=== PATIENT | female | born 1950 | race Caucasian/White ===

== ENCOUNTER 2017-09-02 03:51 | Emergency (ER) | payer MEDICARE, OTHER ==
[~2017-09-02] VITALS: Ht 165.1 cm; Wt 50.8 kg
--- NOTE | 2017-09-02 03:51 | NUR ---
"CHRONIC LUMP IN LT BREAST; BEEN DRINKING FOR 2 WEEKS AND OFF OF XANAX" DENIES SI. PATIENT IS NOTED ANXIOUS. VSS NAD A/OX4 ABLE TO MAKE NEEDS KNOWN. WILL CONTINUE TO MONITOR FOR ANY CHANGES DURING THE SHIFT.
--- NOTE | 2017-09-02 04:15 | NUR ---
ER MD SAMANO AT BEDSIDE
--- NOTE | 2017-09-02 05:58 | NUR ---
DISPENSER OPERATOR AT BEDSIDE
[2017-09-02] MEDS ORDERED: IBUPROFEN 400 MG TABLET ONE (06:51)
[2017-09-02] MEDS ORDERED: ONDANSETRON 4 MG TAB.RAPDIS ONE ×2 (06:55→07:46)
[2017-09-02] MEDS ORDERED: IBUPROFEN 400 MG TABLET PO ONE (07:00)
[2017-09-02] MEDS ORDERED: ONDANSETRON 4 MG TAB.RAPDIS SL ONE ×2 (07:30→08:00)
[2017-09-02] MEDS ORDERED: HYDROCODONE/APAP 5/325MG 1 EACH TABLET ONE (07:46)
[2017-09-02] MEDS ORDERED: IV NS 0.9% 1,000 ML BAG IV ONE (08:00)
[2017-09-02] MEDS ORDERED: HYDROCODONE/APAP 5/325MG 1 EACH TABLET PO ONE (08:00)
[2017-09-02] MEDS ORDERED: PANTOPRAZOLE 40 MG VIAL IV ONE (08:00)
--- NOTE | 2017-09-02 08:00 | NUR ---
LEFT WRIST #20 IV ACCESS. BLOOD SAMPLE COLLECTED SENT TO LAB
[2017-09-02] MEDS ORDERED: PANTOPRAZOLE 40 MG VIAL ONE (08:12)
[2017-09-02 08:14] LABS: BASOPHILS % (AUTO) 0.1 % (0.0-2.0); HEMATOCRIT 36 % (33-45); HEMOGLOBIN 12.6 g/dL (11.5-14.8); LYMPHOCYTES # (AUTO) 1.4 /CMM (0.8-4.8); LYMPHOCYTES % (AUTO) 14.1 % (20.0-44.0); MEAN CORPUSCULAR HGB CONC 35 g/dl (31.0-36.0); MEAN CORPUSCULAR VOLUME 96 fL (82-100); MONOCYTES # (AUTO) 0.7 /CMM (0.1-1.30); NEUTROPHILS # (AUTO) 7.9 /CMM (1.8-8.9); NEUTROPHILS % (AUTO) 78.8 % (43.0-81.0); PLATELET COUNT (AUTO) 150 /CMM (150-450); RDW COEFFICIENT OF VARIATION 14.1 (11.5-15.0); RED BLOOD CELL COUNT(AUTO) 3.72 MIL/uL (4.0-5.2)
[2017-09-02 08:22] LABS: CALCIUM, SERUM 8.8 mg/dL (8.5-10.1); CREATININE 0.4 mg/dL (0.6-1.3)
[2017-09-02 08:29] LABS: ALBUMIN 3.3 g/dL (3.4-5.0); BILIRUBIN,DIRECT 0.3 mg/dL (0.0-0.2); BILIRUBIN,TOTAL 0.9 mg/dL (0.2-1.0); TOTAL PROTEIN, SERUM 6.6 g/dL (6.4-8.2)
[2017-09-02 08:32] LABS: INR 0.94 (0.87-1.13)
[2017-09-02] MEDS ORDERED: FENTANYL PF 100MCG/2ML AMPUL ONE (09:12)
[2017-09-02] MEDS ORDERED: FENTANYL PF 100MCG/2ML AMPUL IV ONE (09:30)
[2017-09-02] MEDS ORDERED: IV NS 0.9% 500 ML IV ONE (09:30)
[2017-09-02 10:23] LABS: CREATININE 0.5 mg/dL (0.6-1.3); POTASSIUM 3.8 mmol/L (3.5-5.1)
--- NOTE | 2017-09-02 10:42 | NUR ---
IV removed. Catheter intact and site benign. Pressure and 4x4 applied to site. No bleeding noted.
--- NOTE | 2017-09-02 10:42 | NUR ---
Patient discharged to home in stable condition. Written and verbal after care instructions given. Patient verbalizes understanding of instruction.
[2017-09-02 10:48] VITALS: BP 150/82
== END 2017-09-02 11:02 | disposition home or self-care (01) ==
LOC: ER 03:54
DX: C50.012 Malignant neoplasm of nipple and areola, left female breast (principal); F41.9 Anxiety disorder, unspecified; I25.10 Atherosclerotic heart disease of native coronary artery without angina pectoris
CPT/HCPCS: 36415; 71045; 76641; 80048 ×2; 80076; 85025; 85730; 86850; 93005; 96361; 96374; 96375; 99285; A4606; C9113; G0480; J3010; J7030; J7040; Q0162 ×2; Z7610

== ENCOUNTER 2019-12-27 14:42 | Inpatient (IN) | payer MEDICARE, OTHER ==
[~2019-12-27] VITALS: Ht 152.4 cm; Wt 39.5 kg
--- NOTE | 2019-12-27 14:42 | NUR ---
PT [id number] FRM HOME, PER EMS FAMILY CALLED FOR WELFARE CHECK. FOUND IN FLOOR. PT IS AAOX3, NOT IN RESPIRATORY DISTRESS, HOOKED TO PIZZA COOK, KEPT RESTED AND COMFORTABLE. WILL CONTINUE TO MONITOR.
--- NOTE | 2019-12-27 15:05 | NUR ---
AT BEDSIDE FOR EVAL.
--- NOTE | 2019-12-27 15:23 | NUR ---
IV LINE ESTABLISHED.
[2019-12-27] MEDS ORDERED: IV NS 0.9% 1,000 ML BAG IV ONE ×2 (15:30→17:00)
--- NOTE | 2019-12-27 15:44 | NUR ---
URINE SPECIMEN COLLECTED AND SENT TO LAB.
--- NOTE | 2019-12-27 15:56 | NUR ---
MOVE SHEET SUBMITTED AND CALLED FOR MS BED.
[2019-12-27 15:57] LABS: BASOPHILS % (AUTO) 0.2 % (0.0-2.0); HEMATOCRIT 50 % (33-45); HEMOGLOBIN 16.6 g/dL (11.5-14.8); LYMPHOCYTES # (AUTO) 1.5 /CMM (0.8-4.8); LYMPHOCYTES % (AUTO) 10.7 % (20.0-44.0); MEAN CORPUSCULAR HGB CONC 33 g/dl (31.0-36.0); MEAN CORPUSCULAR VOLUME 105 fL (82-100); MONOCYTES # (AUTO) 1.4 /CMM (0.1-1.30); MONOCYTES % (AUTO) 9.9 % (2.0-12.0); NEUTROPHILS # (AUTO) 11.2 /CMM (1.8-8.9); NEUTROPHILS % (AUTO) 79.2 % (43.0-81.0); PLATELET COUNT (AUTO) 224 /CMM (150-450); WHITE BLOOD COUNT (AUTO) 14.1 K/uL (4.3-11.0)
[2019-12-27 16:02] LABS: APPEARANCE,URINE Cloudy (CLEAR); BILIRUBIN,URINE SMALL (NEGATIVE); BLOOD, URINE Trace-lysed Ery/uL (NEGATIVE); COLOR,URINE Yellow (YELLOW); KETONES,URINE 15 (NEGATIVE); LEUKOCYTE ESTERASE ,URINE Negative (NEGATIVE); NITRITE, URINE Negative (NEGATIVE); PROTEIN,URINE Negative (NEGATIVE); UGLUCOSE Negative (NEGATIVE); UROBILINOGEN,URINE 0.2 EU/dL (0.2)
--- NOTE | 2019-12-27 16:04 | NUR ---
PT IS WHEELED TO CT SCAN VIA [facility].
[2019-12-27 16:18] LABS: CALCIUM, SERUM 9.8 mg/dL (8.5-10.1); CARBON DIOXIDE 24 mmol/L (21-32); CHLORIDE 101 mmol/L (98-107); GLUCOSE 127 mg/dL (74-106); POTASSIUM 4.1 mmol/L (3.5-5.1); SODIUM SERUM 138 mmol/L (136-145); UREA NITROGEN, BLOOD 41 mg/dL (7-18)
[2019-12-27 16:25] LABS: ALANINE AMINOTRANSFERASE 55 U/L (12-78); ALBUMIN 3.4 g/dL (3.4-5.0); ALCOHOL, BLOOD < 3 mg/dL (0-0); ALKALINE PHOSPHATASE 58 U/L (46-116); ASPARTATE AMINOTRANSFERASE 45 U/L (15-37); BILIRUBIN,DIRECT 0.1 mg/dL (0.0-0.2); BILIRUBIN,TOTAL 0.5 mg/dL (0.2-1.0); SALICYLATE 4.1 mg/dL (2.8-20.0); TOTAL PROTEIN, SERUM 7.3 g/dL (6.4-8.2)
[2019-12-27 16:26] LABS: ACETAMINOPHEN < 2 ug/ml (10-30)
[2019-12-27 16:33] LABS: BACTERIA,URINE Rare /HPF (None Seen); SQUAMOUS EPITHELIAL CELL,UR Few /HPF (None Seen); WBC,URINE NONE SEEN /HPF (0-3)
[2019-12-27 16:33] LABS: SERUM AMMONIA 7 umol/L (11-32)
[2019-12-27 16:41] LABS: THYROID STIMULATING HORMONE 1.236 uIU/mL (0.358-3.74)
[2019-12-27] MEDS ORDERED: HYDR-4384 PO (17:14)
[2019-12-27] MEDS ORDERED: ALPR1TAB2 PO (17:14)
--- NOTE | 2019-12-27 17:20 | NUR ---
LAB CALLED COVID-19 NEG. (-)
--- NOTE | 2019-12-27 17:30 | NUR ---
[facility] FOLLOWED UP TO ENSURE THE JOURNEYMAN ELECTRICIAN PV INSTALLER DR HAD CALLED. [facility] REDISPATCHED THE PAGE
--- NOTE | 2019-12-27 18:00 | NUR ---
CALLED JONAH AGAIN TO PAGE DR. ESCOBAR
--- NOTE | 2019-12-27 18:30 | NUR ---
TEXTED DR. ESCOBAR AND HE SAID THAT [facility] WILL CALL US.
--- NOTE | 2019-12-27 18:45 | NUR ---
CALLED [facility] TO HAVE MACI CALL US.
--- NOTE | 2019-12-27 20:13 | NUR ---
REPORT GIVEN TO RULA ROCA FOR KEVIN PT WILL BE TRANSPORTED TO 3RD FLOOR
[2019-12-27 21:00] VITALS: BP 154/75
[2019-12-27] MEDS ORDERED: ONDANSETRON HCL/PF 4 MG/2 ML VIAL IVP PRN (21:00)
[2019-12-27] MEDS ORDERED: Z GUARD REMEDY 2 OZ OINT TP PRN (21:00)
[2019-12-27] MEDS ORDERED: ZOLPIDEM TARTRATE 5 MG TABLET PO PRN (21:00)
[2019-12-27] MEDS ORDERED: ACETAMINOPHEN 325 MG TABLET PO PRN (21:00)
[2019-12-27] MEDS ORDERED: HYDROCODONE/APAP 5/325MG TABLET PO PRN (21:00)
--- NOTE | 2019-12-27 21:11 | NUR ---
PT TRANSPORTED TO 3RD FLOOR
--- NOTE | 2019-12-27 21:12 | NUR ---
MS/RN NEW ADMISSION NOTES RECEIVED PATIENT IS A 69 YO FEMALE, WEAK AND FRAIL LOOKING, REQUIRE ASSISTANCE EXTENSIVE PATIENT IS WEEK. ALERT, ORIENTED X2 TO 3, CAN COOPERATE AND FOLLOW SIMPLE COMMANDS, BUT REQUIRE FREQUENT REORIENTATION AND ENCOURAGE FOOD AND FLUIDS, WITH MD ORDER FOR REGULAR DIET. REPORT RECEIVED PATIENT LIVES ALONE AND DAUGHTER ANTONY CALLED SHE DISCUSSED HER MOMS CONCERNS HAS BEEN DRINKING HEAVILY WITH HEINEKEN BEER AND SMOKING ORGANIC CIGARETTES AND HAS NOT BEEN EATING WELL. MD MACI BOWERS IS THE ADMITTING DR, BELONGINGS CHECK, MEDICATION HOME REPORTED AND PATIENT SKIN ASSESSES WITH PRESSURE SACRAL WITH REDNESS AND RIGHT ELBOW REDNESS, LEFT BREAST MASTECTOMY AND MID BACK REDNESS, ROOM ORIENTATION PROVIDED, BED LOCKED, CALL LIGHTS WITHIN REACH. MONITORED FOR SAFETY.ON ROOM AIR, RESPIRATIONS EVEN AND UNLABORED, IV SITE ON RFA PATENT.
--- NOTE | 2019-12-27 21:15 | NUR ---
MS/RN NOTES PATIENT DAUGHTER NEWTON CALLED AND DISCUSSED HER MOMS HEALTHCARE CONCERNSTHAT HER MOM HAS NOT BEEN EATING WELL FOR THE PAST MONTHS AND HAS BEEN DRINKING HEINEKEN BEER AND SMOKES ORGANIC CIGARRETED, THAT HER MOM REFUSES CARE AND MAY NEED SOCIAL WORK CONSULT TO DISCUSS CARE, PER DAUGHTER PATIENT HAS BEEN DEPRESSED EVER SINCE PANDEMIC STARTED AND TO ADD THAT SHE IS ALONE AND LEFT WITHOUT HER PARTNER AND ALSO WITH STAGE 3 BREAST CANCER, PATIENT HAS MEDICATION XANAX THAT SHE TAKES AND HAS RAN OUT THAT SHE MIGHT HAVE SOME EFFECTS, PATIENT LIVES ALONE AND HAVE BROUGHT UP DNR, PALLIATIVE SET UP AND HOSPICE , BEING SEEN BY ONCOLOGIST SID MARTINEZ AT [facility].
[2019-12-27] MEDS: ENOXAPARIN SODIUM 40 MG/0.4 ML DISP.SYRIN SQ SCH (22:12)
[2019-12-28] MEDS: IV NS 0.9% 1,000 ML IV PRN ×3 (00:15→19:53)
[2019-12-28] MEDS: ALPRAZOLAM 1 MG TABLET PO PRN ×2 (00:33→10:23)
--- NOTE | 2019-12-28 00:38 | NUR ---
MS/RN NOTES PATIENT HAVING ANXIETY AND REQUESTING MEDICATION TO CALM HER DOWN XANAX 1 MG PO GIVEN, PATIENT ABLE TO TOLERATE PO MEDS. ALERT X2 ONLY PATIENT THOUGHTS WANDERS,
--- NOTE | 2019-12-28 02:00 | NUR ---
MS/RN NOTES PATIENT OBSERVED ASLEEP, RESTING COMFORTABLE UNABLE TO EAT THE SNACKS PROVIDED.
[2019-12-28 04:33] LABS: BASOPHILS % (AUTO) 0.2 % (0.0-2.0); EOSINOPHILS % (AUTO) 0.1 % (0.0-6.0); HEMATOCRIT 42 % (33-45); HEMOGLOBIN 14.2 g/dL (11.5-14.8); LYMPHOCYTES # (AUTO) 1.6 /CMM (0.8-4.8); LYMPHOCYTES % (AUTO) 23.4 % (20.0-44.0); MEAN CORPUSCULAR HGB CONC 34 g/dl (31.0-36.0); MEAN CORPUSCULAR VOLUME 103 fL (82-100); MONOCYTES # (AUTO) 0.8 /CMM (0.1-1.30); NEUTROPHILS # (AUTO) 4.3 /CMM (1.8-8.9); NEUTROPHILS % (AUTO) 64.3 % (43.0-81.0); PLATELET COUNT (AUTO) 180 /CMM (150-450); RED BLOOD CELL COUNT(AUTO) 4.07 MIL/uL (4.0-5.2); WHITE BLOOD COUNT (AUTO) 6.7 K/uL (4.3-11.0)
[2019-12-28 04:55] LABS: ALBUMIN 2.6 g/dL (3.4-5.0); BILIRUBIN,TOTAL 0.4 mg/dL (0.2-1.0); CALCIUM, SERUM 8.3 mg/dL (8.5-10.1); CREATININE 0.6 mg/dL (0.6-1.3); MAGNESIUM 2.2 mg/dL (1.8-2.4); PHOSPHORUS 2.7 mg/dL (2.5-4.9); TOTAL PROTEIN, SERUM 5.7 g/dL (6.4-8.2)
[2019-12-28 05:03] LABS: THYROID STIMULATING HORMONE 0.461 uIU/mL (0.358-3.74)
[2019-12-28 05:07] LABS: POTASSIUM 2.5 mmol/L (3.5-5.1)
--- NOTE | 2019-12-28 05:07 | NUR ---
RECEIVED CALL FROM ZULEYKA AT THE LAB AND REPORTED POTASSIUM LEVEL 2.5 OF PATIENT TO INFORM AND CONTACT MD BOWERS.
--- NOTE | 2019-12-28 05:21 | NUR ---
LEFT MESSAGE TO PIPE INSPECTOR MD BOWERS. AWAITING FOR ORDER REGARDING POTASSIUM LEVEL.
--- NOTE | 2019-12-28 05:26 | NUR ---
RECEIVED ORDER FROM MD BOWERS REGARDING LOW POTASSIUM LEVEL AT 2.5 TO GIVE PO 40 MEQ POTASSIUM ONE TIME DOSE.
[2019-12-28] MEDS ORDERED: POTASSIUM CHLORIDE 20 MEQ TAB.PRT.SR PO ONE (05:30)
--- NOTE | 2019-12-28 06:39 | NUR ---
328-2 MS/RN NOTES ATTENDED ALL NEEDS, PATIENT ABLE TO VERBALIZE NEEDS, REQUIE REORIENTATION, ASSISTED FOR SAFETY, BED LOCKED, CALL LIGHTS WITHIN REACJDAMIEN ENDORSE TO AM RN FOR SAFETY, ENSOURAGE SNACKS. WILL ENDORSE TO AM RN FOR KEVIN.
[2019-12-28 08:00] VITALS: BP 117/71
--- NOTE | 2019-12-28 08:00 | NUR ---
MS/RN AM NOTES RECEIVED PATIENT WEAK AND FRAIL, ALERT AND CONFUSED, CAN FOLLOW SIMPLE COMMANDS, REQUIRES FREQUENT REORIENTATION AND ENCOURAGE FOOD AND FLUIDS, ON REGULAR DIET AND ATE 100% BREAKFAST. PATIENT LIVES ALONE . WITH PRESSURE SACRAL WITH REDNESS AND RIGHT ELBOW REDNESS, LEFT BREAST MASTECTOMY AND MID BACK REDNESS, SEEN BY WOUND BRAKE LINING FINISHER ASBESTOSSHAMEKA WITH ORDERS CARRIED OUT. BED LOCKED,WILL PLACE PT IN ISOFLEX BED. TURNED EVERY TWO HRS. CALL LIGHTS WITHIN REACH. WILL CONTINUE TO MONITOR.
[2019-12-28] MEDS: PANTOPRAZOLE 40 MG TABLET.DR PO SCH (09:16)
--- NOTE | 2019-12-28 09:16 | NUR ---
WOUND CARE CONSULT: PT PRESENTS WITH LEFT BREAST DRY LESION, CALLUSES TO FEET AND SACRAL INTACT DEEP TISSUE INJURY, PRESENT ON ADMISSION. RECOMMENDATIONS MADE FOR SKIN PROTECTION AND WOUND CARE. DISCUSSED WITH NURSING STAFF. DEBRIS AND STAINING OF SKIN NOTED TO BILATERAL FEET, PRESENT ON ADMISSION. DIETARY CONSULT IN PLACE. MD IN AGREEMENT WITH PLAN OF CARE. ISOFLEX LOW AIRLOSS BED TO BE PLACED. Addendum: 12/28/19 at 0918 by SHAMEAK DRUMMOND WNDNU Amended: Links added.
[2019-12-28] MEDS: POTASSIUM CL. PREMIX PERIPHER. 50 ML IV SCH ×2 (10:57→12:11)
--- NOTE | 2019-12-28 11:54 | NUR ---
potassium IV administered in slow rate according to pt's tolerance
--- NOTE | 2019-12-28 12:36 | NUR ---
10:20am This SW attempted to meet with the patient per consult request by Noah Garza DNP as patient lives alone with stage 3 cancer and would like referral for care. Per MD note, patient is a 69-year-old female who presented to [facility] ED per EMS, family called for a welfare check and was found on the floor. Patient was being fed by nurse and this SW to return to conduct assessment. This SW remains available for all needs regarding this patient.
--- NOTE | 2019-12-28 15:28 | NUR ---
11:30am This SW attempted to meet with the patient per consult request by Noah Garza DNP as patient lives alone with stage 3 cancer and would like referral for care. Per MD note, patient is a 69-year-old female who presented to [facility] ED per EMS, family called for a welfare check and was found on the floor. Patient is alert and oriented x2. Patient is confused but cannot have meaningful conversation at this time. This SW to follow up with daughter Janelle This SW remains available for all needs regarding this patient.
--- NOTE | 2019-12-28 15:29 | NUR ---
1:30pm This SW contacted patients bee Luis . SW introduced herself and informed Janelle that this SW was calling in order to complete an assessment on the patient. Janelle was receptive to speaking with this SW on behalf of this patient. Janelle informed this SW that the patient has stage 3 breast cancer and when the diagnosis was given patient decided to approach the cancer in a holistic perspective. Janelle informed this SW that Janelle is the only child and main stogy maker for this patient. Janelel is currently working part-time and when COVID started, Janelle and the patient had limited interactions to prevent exposure. Janelle stated that the patient conducted ADLs and IADLs independently. Janelle noted the patient become depressed over the last few months due to the pandemic, including loss of appetite. Bee Luis stated that Janelle believes that patients confusion may be due to patient running out of Xanax prescription a few days ago as the patient has been taking 1mg every 6-8 hours for months. Janelle reported that when patient has had withdrawals for Xanax in the past this has happened. Janelle reports that the patient was diagnosed with severe anxiety disorder years back; however, patient stopped medications when primary physician retired and has also approached this holistically. Bee Luis reports that in the past there was a plan to obtain IHSS services, but patient was put in a financial bracket that would require her to pay IHSS caregiver [id number]. Janelle explained that patients brother a few years back and he left her with a trust. Patient is currently using this trust to pay for cancer care. Janelle reported that patient is currently in the middle of a divorce in which current is a combat , with a shared income and disability. Bee Luis would like more information on IHSS with palliative care (this SW assuming that Janelle means that Janelle would like for the patient to have IHSS services when the patient begins palliative care) that would not be necessary for the patient to pay out of pocket. Bee Luis asked this SW to provide a medical update on this patient, this SW informed Janelle that this publicity writer is not a medical provider and cannot provide update. However, this SW can ask patients nurse to call Janelle for this update. Janelle expressed agreement in this and SW to follow up with patients nurse. SW to follow-up with Janelle regarding IHSS with palliative care either by end of day 12/27 or Sunday 12/31.
[2019-12-28] MEDS: ENSURE ENLIVE 237 ML LIQUID (VANILLA) PO SCH (17:56)
--- NOTE | 2019-12-28 19:10 | NUR ---
RN OPENING NOTES Received patient awake, A/O x2, on bed, on RA. Pt denies any discomfort at this time. With IVF infusing, no s/sx of infiltration noted. Kept on bed clean, dry and comfortable. On fall and aspiration precautions. Will continue to monitor accordingly.
--- NOTE | 2019-12-28 19:48 | NUR ---
PT RESTING IN BED WITH ONGOING IVF NS RUNNING AT 125 ML/HR INFUSING WELL.NO SOB ON ROOM AIR.ATE 100% DINNER. NEEDS EXTENSIVE ASSIST WITH ADLS.CALL LIGHT PLACED WITHIN REACH.
[2019-12-28 19:59] VITALS: BP 151/72
[2019-12-28 20:00] VITALS: BP 151/72
[2019-12-28] MEDS: ENOXAPARIN SODIUM 40 MG/0.4 ML DISP.SYRIN SQ SCH (20:32)
[2019-12-29] MEDS: ALPRAZOLAM 1 MG TABLET PO PRN ×2 (00:22→16:18)
[2019-12-29] MEDS: IV NS 0.9% 1,000 ML IV PRN (05:50)
[2019-12-29] MEDS: PANTOPRAZOLE 40 MG TABLET.DR PO SCH (06:43)
--- NOTE | 2019-12-29 06:56 | NUR ---
RN CLOSING NOTES Pt awake on bed. No new complaints made. Due meds given as ordered, no ASE noted. All nursing needs attended. Still with poor appetite. Kept on bed clean, dry and comfortable. On fall and aspiration precautions. Endorsed.
[2019-12-29 07:11] LABS: BASOPHILS % (AUTO) 0.1 % (0.0-2.0); EOSINOPHILS % (AUTO) 0.4 % (0.0-6.0); HEMATOCRIT 42 % (33-45); HEMOGLOBIN 13.9 g/dL (11.5-14.8); LYMPHOCYTES # (AUTO) 1.9 /CMM (0.8-4.8); LYMPHOCYTES % (AUTO) 28.8 % (20.0-44.0); MEAN CORPUSCULAR HGB CONC 33 g/dl (31.0-36.0); MEAN CORPUSCULAR VOLUME 104 fL (82-100); MONOCYTES # (AUTO) 0.7 /CMM (0.1-1.30); MONOCYTES % (AUTO) 11.1 % (2.0-12.0); NEUTROPHILS # (AUTO) 3.8 /CMM (1.8-8.9); NEUTROPHILS % (AUTO) 59.6 % (43.0-81.0); PLATELET COUNT (AUTO) 195 /CMM (150-450); RED BLOOD CELL COUNT(AUTO) 4.01 MIL/uL (4.0-5.2); WHITE BLOOD COUNT (AUTO) 6.4 K/uL (4.3-11.0)
[2019-12-29 07:30] LABS: CALCIUM, SERUM 8.3 mg/dL (8.5-10.1); CREATININE 0.6 mg/dL (0.6-1.3); MAGNESIUM 1.8 mg/dL (1.8-2.4); PHOSPHORUS 1.5 mg/dL (2.5-4.9)
--- NOTE | 2019-12-29 07:30 | NUR ---
MS/RN OPENING NOTE Patient in bed, A&O x 2, confused, will frequently reorient throughout shift. Denies any pain and discomfort at this time. Breathing even and non-labored on RA, no SOB noted. No cardiac distress noted. IV access noted on R FA #22, patent and intact, and running NS @ 125 ml/hr. No s/s infection, bleeding, or infiltration noted on site. Bed locked to its lowest position, side rails x2 up, instructed pt to use call light when in need of assistance. Will continue current plan of care.
[2019-12-29 07:39] LABS: POTASSIUM 2.7 mmol/L (3.5-5.1)
[2019-12-29 08:00] VITALS: BP 160/88
[2019-12-29] MEDS: MULTIVITAMINS,THERAGRAN 1 UDTAB TABLET PO SCH (08:26)
[2019-12-29] MEDS: ENSURE ENLIVE 237 ML LIQUID (VANILLA) PO SCH ×3 (08:26→16:17)
--- NOTE | 2019-12-29 08:50 | NUR ---
MS/RN NOTE Notified Dr. Anderson Ferguson of the following lab values: potassium - 2.7 & CK MB - 6.3. Ordered Potassium Cl 40 MEQ IV, carried out. Will continue to monitor patient for any changes of condition.
[2019-12-29] MEDS ORDERED: POTASSIUM CHLORIDE 10 MEQ/50 ML PREMIXED IVPB FOR PERIPHERAL LINE IV ONE (09:30)
--- NOTE | 2019-12-29 10:00 | NUR ---
MS/RN NOTE Urine collected and notified lab.
[2019-12-29] MEDS: POTASSIUM CL. PREMIX PERIPHER. 50 ML IV SCH ×4 (10:23→13:48)
--- NOTE | 2019-12-29 10:23 | NUR ---
MS/RN NOTE Potassium IV administered at pt's tolerable rate. No s/s of infection, infiltration, bleeding noted on IV site, remained patent and intact. Will continue to monitor.
[2019-12-29 11:09] LABS: CHLORIDE,URINE RANDOM 177 mmol/L (55-125); POTASSIUM RNDM,URINE 34 mmol/L (25-125); URINE SODIUM, RANDOM 125 mmol/l (40-220)
[2019-12-29] MEDS ORDERED: NEUTRA PHOS 1 POWD.PACKET PO ONE (12:00)
[2019-12-29 12:32] LABS: OSMOLALITY,URINE 556 mOS/kg (340-1090)
[2019-12-29 16:00] VITALS: BP 160/77
--- NOTE | 2019-12-29 16:10 | NUR ---
MS/RN NOTE Patient pulled out IV with catheter intact. Inspected skin, no s/s of infection or infiltration. Placed clean dry dressing on the site to stop bleeding. Instructed patient the importance of an IV, patient insists "this is my body, I do not give you the permission to insert one on me." Educated risks and benefits. Notified MD. Will continue to monitor.
--- NOTE | 2019-12-29 16:18 | NUR ---
MS/RN NOTE Patient appears anxious, yelling "I want to speak to my child because I am supposed to be upstairs with them" and "I do not want an IV, I do not give anyone the permission to touch me right now." Administered xanax 1 mg, will continue to monitor.
--- NOTE | 2019-12-29 17:10 | NUR ---
MS/RN NOTE Patient keeps getting out of bed, threatening to leave the hospital, very confused and agitated. Reoriented patient to bed. Ordered 1:1 sitter. Notified MD.
--- NOTE | 2019-12-29 18:14 | NUR ---
MS/RN NOTE Patient still refuses to get an IV, states "it's my body, it's my choice what to permit what's there to be done."
--- NOTE | 2019-12-29 19:15 | NUR ---
MS/RN CLOSING NOTE Patient resting in bed, A&O x 2, confused, frequently reoriented throughout shift. Denies any pain and discomfort throughout shift. Breathing even and non-labored on RA. No respiratory or cardiac distress noted. Patient still refuses to start an IV, remained agitated although given xanax at 1618. Sensation from all peripheral extremities intact. Fall precautions maintained. Will endorse to night filler nurse.
[2019-12-29 20:00] VITALS: BP 153/85
--- NOTE | 2019-12-29 20:00 | NUR ---
MS RN OPENING NOTE: Patient in bed sleeping comfortably. With sitter. Patient shows no signs of pain or discomfort. On room air, no signs of SOB, or respiratory distress, breathing unlabored and equal. No IV access noted received report that patient pulled it off. Asked patient if I can reinsert, patient refused and went back to sleep. Educated patient on the importance of keeping an IV access and its pros and cons but patient refused and went back to sleep. Will try again later. Safety precaution is in place, bed is in the lowest level, bed is locked, alarm is on, side rails x2 are up, and call light is within reach.
[2019-12-29 20:32] VITALS: BP 153/85
[2019-12-29] MEDS: ENOXAPARIN SODIUM 40 MG/0.4 ML DISP.SYRIN SQ SCH (21:53)
--- NOTE | 2019-12-30 | NUR ---
MS RN NOTE: Patient agreed to IV access reinsertion. IV access inserted on right forearm, 22 gauge, flushes well, patent, no redness or infiltration.
[2019-12-30] MEDS: IV 1/2NS 1000 ML 1,000 ML IV PRN (02:31)
--- NOTE | 2019-12-30 06:36 | NUR ---
MS RN CLOSING NOTE: Patient is awake, watching TV. Patient is a little confused but lets needs known. Breathing well on room air. No respiratory distress or SOB noted. Safety precaution is in place, bed is in the lowest level, alarm is on, brakes are on, side rails x2 are up, and call light is within reach. Will endorse to next shift.
[2019-12-30 07:22] LABS: CALCIUM, SERUM 8.3 mg/dL (8.5-10.1); CREATININE 0.5 mg/dL (0.6-1.3); PHOSPHORUS 2.1 mg/dL (2.5-4.9)
--- NOTE | 2019-12-30 07:30 | NUR ---
RN OPENING NOTES RECEIVED PATIENT RESTING IN BED COMFORTABLY, AWAKE, WITH 1:1 SITTER AT BEDSIDE. PT IS AOX2, VERBAL, AND ON BED REST. SHE IS ON RA, TOLERATING WELL, NO SOB OR RESP DISTRESS. SACRAL DTI PRESENT, WILL ADDRESS PER WOUND CARE PLAN. PT DENIES ANY SOB OR CHEST PAIN AT THIS TIME. HOWEVER, SHE STATES SHE IS FEEL ANXIOUS. IV SITE ON RFA 22 G IS PATENT AND INTACT. SAFETY MEASURES HAVE BEEN IMPLEMENTED, CALL LIGHT IS WITHIN REACH, BED IS IN LOWEST AND LOCKED POSITION, SIDE RAILS UP X2, WILL CONTINUE TO MONITOR FOR ANY CHANGES.
[2019-12-30 07:38] LABS: POTASSIUM 2.4 mmol/L (3.5-5.1)
[2019-12-30] MEDS: PANTOPRAZOLE 40 MG TABLET.DR PO SCH (07:39)
[2019-12-30] MEDS: ALPRAZOLAM 1 MG TABLET PO PRN ×2 (07:40→09:40)
[2019-12-30] MEDS: MULTIVITAMINS,THERAGRAN 1 UDTAB TABLET PO SCH (08:27)
[2019-12-30] MEDS: ENSURE ENLIVE 237 ML LIQUID (VANILLA) PO SCH ×3 (09:38→16:43)
--- NOTE | 2019-12-30 10:32 | NUR ---
PAGED DR. ESCOBAR TO NOTIFY OF CRITICAL POTASSIUM LEVEL. WAITING FOR CALL BACK, WILL CONTINUE TO MONITOR
[2019-12-30] MEDS ORDERED: K PHOS NEUTRAL 250 MG TABLET PO ONE (11:00)
--- NOTE | 2019-12-30 12:40 | NUR ---
RN NOTES SPOKE WITH DAUGHTER NEWTON OVER THE PHONE. UPDATED HER ON CONIDITION OF PT AND PLAN OF CARE. SHE EMPHASIZED THAT SHE DOES NOT WANT HER DC'D TO SNF. STATES SHE WOULD LIKE TO SPEAK WITH MD ESCOBAR, WILL LET HIM KNOW
[2019-12-30] MEDS ORDERED: POTASSIUM CHLORIDE 20 MEQ TAB.PRT.SR PO ONE (13:00)
--- NOTE | 2019-12-30 13:10 | NUR ---
RN NOTES UPDATED MD ESCOBAR ON STATUS OF PT DURING ROUNDS, ENDORSED K LEVEL OF 2.5 THIS AM. RECEIVED ORDER FOR 40 MeQ POTASSIUM IV AND 40 MeQ PO POTASSIUM. DC HAS BEEN POSTPONED FOR K LEVELS. WILL CONTINUE TO MONITOR FOR ANY CHANGES.
[2019-12-30] MEDS: POTASSIUM CL. PREMIX PERIPHER. 50 ML IV SCH ×4 (13:22→16:43)
--- NOTE | 2019-12-30 18:54 | NUR ---
RN CLOSING NOTES PT IS RESTING IN BED COMFORTABLY AT THIS TIME WITH 1:1 SITTER AT BEDSIDE. PT IS S/P 80 MeQ K REPLACEMENT (40 IV AND 40 PO). NO ACUTE CHANGES OCCURRED THROUGHOUT THE SHIFT, VITAL SIGNS ARE STABLE, PT NEEDS HAVE BEEN MET. SAFETY MEASURES HAVE BEEN IMPLEMENTED, CALL LIGHT IS WITHIN REACH, BED IS IN LOWEST AND LOCKED POSITION, SIDE RIALS UP X2, WILL ENDORSE TO NIGHTSHIFT RN FOR KEVIN.
--- NOTE | 2019-12-30 19:20 | NUR ---
MS RN OPEN NOTES PATIENT IS LAYING IN BED. A/O X2. ON RA, NO SOB/ ACUTE RESPIRATORY DISTRESS NOTED. NO COMPLAINTS OF PAIN AT THE MOMENT. BED IS IN LOWEST LOCKED POSITION WITH SIDE RAILS UP X3, SEMI FOWLERS. CALL LIGHT IS WITHIN REACH. WILL CONTINUE TO MONITOR.
[2019-12-30 20:00] VITALS: BP 153/83
[2019-12-30] MEDS: ENOXAPARIN SODIUM 40 MG/0.4 ML DISP.SYRIN SQ SCH (20:25)
--- NOTE | 2019-12-30 21:23 | NUR ---
MS RN NOTES PT REFUSED TO HAVE PICTURES TAKEN. WILL FOLLOW UP LATER.
[2019-12-31] MEDS: IV 1/2NS 1000 ML 1,000 ML IV PRN (04:54)
--- NOTE | 2019-12-31 06:49 | NUR ---
MS RN CLOSE NOTES PATIENT IS WATCHING TV IN BED. A/O X2 WITH PERIODS OF CONFUSION. ON RA, NO SOB/ ACUTE RESPIRATORY DISTRESS NOTED. IV IN RIGHT FOREARM #22G IS PATENT AND INTACT RUNNING 1/2 NS @ 75MLS/HR. APPEARS COMFORTABLE/ NO COMPLAINTS OF PAIN AT THE MOMENT. BED IS IN LOWEST LOCKED POSITION WITH SIDE RAILS UP X3, SEMI FOWLERS. SITTER IS AT BEDSIDE. CALL LIGHT IS WITHIN REACH. WILL ENDORSE TO AM NURSE.
--- NOTE | 2019-12-31 07:15 | NUR ---
PATIENT RESTING IN BED , AWAKE 1:1 SITTER AT BEDSIDE. PT IS AOX2, VERBAL, USES BSC. PT IS ON RA, NO SOB OR RESP DISTRESS. PT DENIES ANY SOB OR CHEST PAIN AT THIS TIME. IV SITE ON RFA 22 G IS PATENT AND INTACT. SAFETY MEASURES HAVE BEEN IMPLEMENTED, CALL LIGHT IS WITHIN REACH, BED IS IN LOWEST AND LOCKED POSITION, SIDE RAILS UP X2, WILL CONTINUE TO MONITOR FOR ANY CHANGES.
[2019-12-31 07:19] LABS: CALCIUM, SERUM 8.1 mg/dL (8.5-10.1); CREATININE 0.4 mg/dL (0.6-1.3); PHOSPHORUS 2.5 mg/dL (2.5-4.9)
[2019-12-31 08:00] VITALS: BP_SYST 151; BP_DIAS 64; BP_DIAS 84
[2019-12-31 08:09] LABS: POTASSIUM 2.5 mmol/L (3.5-5.1)
[2019-12-31 08:10] LABS: MAGNESIUM 1.2 mg/dL (1.8-2.4)
[2019-12-31] MEDS: PANTOPRAZOLE 40 MG TABLET.DR PO SCH (08:28)
[2019-12-31] MEDS: MULTIVITAMINS,THERAGRAN 1 UDTAB TABLET PO SCH (08:28)
[2019-12-31] MEDS: ENSURE ENLIVE 237 ML LIQUID (VANILLA) PO SCH ×3 (08:29→17:20)
[2019-12-31] MEDS: Magnesium 1GM/D5W 100ML PREMIX 100 ML IV SCH ×4 (09:50→13:53)
[2019-12-31] MEDS ORDERED: POTASSIUM CHLORIDE 20 MEQ TAB.PRT.SR PO ONE (11:00)
[2019-12-31] MEDS ORDERED: POTASSIUM CHLORIDE 10 MEQ/50 ML PREMIXED IVPB FOR PERIPHERAL LINE IV ONE (13:00)
[2019-12-31] MEDS: POTASSIUM CL. PREMIX PERIPHER. 50 ML IV SCH ×6 (13:56→19:52)
[2019-12-31 16:00] VITALS: BP_SYST 146; BP_SYST 151; BP_DIAS 100; BP_DIAS 99
--- NOTE | 2019-12-31 18:34 | NUR ---
Patient is awake, watching TV. Patient is a/o x2 forgetful . Breathing unlabored on room air. No respiratory distress or SOB noted. All needs attended . Magnesium and potassium administrated as ordered . Last bag of potassium 10mEq IV will endorse to next shift to finish. Patient kept clean and dry . Encourage to change position in bed.Safety precaution is in place, bed is in the lowest level, alarm is on, brakes are on, side rails x2 are up, and call light is within reach. Will endorse to next shift for KEVIN .
--- NOTE | 2019-12-31 19:15 | NUR ---
RN medsurg opening notes Received Pt from morning nurse. Pt is sitting in bed comfortably eating dinner. Pt is alert and orientedX2. Respiration is normal in room air. No SOB. No S/S of distress noted. IV sites at R wrist # 20 is clean, intact and infusing well potassium. Sitter at the bedside. Safety precautions is maintained. Bed at low position, brakes locked, HOB elevated, side rails upX3 and call light is within reach. Will continue to monitor.
[2019-12-31 20:00] VITALS: BP 134/76
[2019-12-31] MEDS: ENOXAPARIN SODIUM 40 MG/0.4 ML DISP.SYRIN SQ SCH (20:07)
--- NOTE | 2020-01-01 06:33 | NUR ---
RN medsurg closing notes Pt is resting in bed comfortably. Pt is alert and orientedX2 with episode of confusion. Respiration is normal in room air. No SOB. No S/S of distress noted. VS is stable. Afebrile. Routine meds were given as ordered. IV sites at R wrist # 20 is clean, intact and SL. Kept Pt clean, dry and comfortable. All needs met and attended. Safety precautions is maintained. Bed at low position, brakes locked, HOB elevated, side rails upX3 and call light is within reach. Will endorse to morning nurse for KEVIN.
--- NOTE | 2020-01-01 07:46 | NUR ---
Patient shows no signs of pain or discomfort. On room air, no signs of SOB, or respiratory distress, breathing unlabored and equal.Safety precaution is in place, bed is in the lowest level, bed is locked, alarm is on, side rails x2 are up, and call light is within reach. Sitter at bedside . Will continue to monitor
[2020-01-01 08:00] VITALS: BP 136/74
[2020-01-01] MEDS: PANTOPRAZOLE 40 MG TABLET.DR PO SCH (08:58)
[2020-01-01] MEDS: ENSURE ENLIVE 237 ML LIQUID (VANILLA) PO SCH ×2 (08:58→12:01)
[2020-01-01] MEDS: MULTIVITAMINS,THERAGRAN 1 UDTAB TABLET PO SCH (08:58)
[2020-01-01 09:07] LABS: CALCIUM, SERUM 8.5 mg/dL (8.5-10.1); CREATININE 0.4 mg/dL (0.6-1.3); MAGNESIUM 2.2 mg/dL (1.8-2.4); POTASSIUM 3.8 mmol/L (3.5-5.1)
[2020-01-01 09:50] LABS: CHLORIDE,URINE RANDOM 99 mmol/L (55-125); POTASSIUM RNDM,URINE 66 mmol/L (25-125); URINE SODIUM, RANDOM 61 mmol/l (40-220)
--- NOTE | 2020-01-01 12:30 | NUR ---
Patient cleared for d/c to home with 24 hr caregiver by MD. Patient informed .
[2020-01-01] MEDS ORDERED: PANT40TA2 PO (12:44)
[2020-01-01] MEDS ORDERED: MULT-24 PO (12:44)
[2020-01-01 16:00] VITALS: BP 144/80
--- NOTE | 2020-01-01 17:10 | NUR ---
Patient cleared for D/c to home. Patient awake , alert and oriented x2 , forgetful. Breathing unlabored and even on room air with no distress noted; saturation above 95%; vs are stable ; pt afebrile .Denies any pain or discomfort. Patient strongly refused d/c pictures. D/c instructions and education provided, patient verbalized understanding. All needs attended prior discharge. IV line removed and ID wrist band removed. Patient sighed d/c instructions and valuable form; all belongings with the patient.Patient safely picked up by ambulance.
== END 2020-01-01 17:10 | disposition hospice, home (50) | DRG 682 ==
LOC: ER 14:44 → MED 19:15
PROVIDERS: ADMIT Hospitalist; ATTEND Student in an Organized Health Care Education/Training Program
DX: N17.0 Acute kidney failure with tubular necrosis (principal); G93.41 Metabolic encephalopathy; Z68.1 Body mass index [BMI] 19.9 or less, adult; E86.9 Volume depletion, unspecified; F41.9 Anxiety disorder, unspecified; Z90.49 Acquired absence of other specified parts of digestive tract; Z79.899 Other long term (current) drug therapy; E87.6 Hypokalemia; E86.0 Dehydration; I10 Essential (primary) hypertension; I70.0 Atherosclerosis of aorta; E83.39 Other disorders of phosphorus metabolism; C50.912 Malignant neoplasm of unspecified site of left female breast; I67.2 Cerebral atherosclerosis; M48.02 Spinal stenosis, cervical region; Z66 Do not resuscitate
CPT/HCPCS: 36415; 70450-TC; 71045-TC; 72125-TC; 80048-TC; 80053-TC; 80061-TC; 80076-TC; 80305; 81000-TC; 82140-TC; 82436-TC; 82550-TC; 82553; 83735-TC; 83935-TC; 84100-TC; 84133-TC; 84244; 84300-TC; 84443-TC; 84484-TC; 85025-TC; 85730-TC; 87081-TC; 97116-TC; 97530-TC; C9803-CS; G0378; G0480; J1650; J3475; J3480; J3490; J7030